=== PATIENT | female | born 1965 | race Caucasian/White ===

== ENCOUNTER 2021-12-15 07:13 | Outpatient (CLI) | payer OTHER, SELFPAY ==
--- NOTE | 2021-12-15 07:15 | CRLHL7_ITS ---
For Patients: As a result of the Century Cures Act, medical imaging exams and procedure reports are released immediately into your electronic medical record. You may view this report before your referring provider. If you have questions, please contact your health care provider. INDICATION: Tremors. Follow-up pituitary lesion. TECHNIQUE: Brain MRI with contrast. Pituitary protocol. The following sequences were obtained: DWI and ADC mapping sequences. Axial FLAIR and T2 weighted sequences. Coronal T2 weighted sequence of the sellar region. Coronal and sagittal thin-section T1 weighted pre-contrast and post-contrast sequences of the sellar region. T1 weighted sequence of the whole brain. 15 cc of Dotarem gadolinium based intravenous contrast agent was used. COMPARISON: Brain MRI from 03/07/2021. FINDINGS: Oval hypoenhancing lesion within the superior pituitary gland substance and inferior infundibulum which is predominantly T2 hypointense and hypoenhancing. It measures 7 millimeters in AP dimension, 7 millimeters in TR dimension, and 5 millimeters in CC dimension. The neurohypophysis demonstrates normal T1 shortening. Infundibulum is midline. The cavernous sinuses and Meckel`s caves are normal in appearance. The suprasellar cistern, hypothalamus and optic chiasm are all normal in appearance. All the major intracranial vascular structures demonstrate normal flow-related signal voids and intraluminal enhancement. Sphenoid sinus demonstrates subsellar pneumatization. No evidence of acute ischemia, although the diffusion sequence is degraded by artifact. Scattered FLAIR hyperintensities within the supratentorial white matter, typical for chronic microvascular ischemic changes. No mass effect or herniation. No hydrocephalus or extra-axial collections. Posterior fossa is normal. All the major intracranial vascular structures demonstrate normal flow-related signal. The orbital contents are normal. No calvarial or skull base marrow signal abnormality. No obstructive sinus disease. No extracranial soft tissue findings. IMPRESSION: 1. Decreased size of the lesion involving the superior pituitary gland at the infundibular insertion. 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 No significant suprasellar mass effect upon today`s examination. 2. No evidence of acute infarction, although the diffusion sequence is degraded by artifact. 3. No mass or pathologic intracranial enhancement elsewhere. 4. Minor chronic microvascular ischemic changes. Dictated by Ko Bae MD @ 12/16/2021 11:48:26 AM (Electronically Signed)
--- NOTE | 2021-12-15 08:15 | CRLHL7_ITS ---
For Patients: As a result of the Cures Act, medical imaging exams and procedure reports are released immediately into your electronic medical record. You may view this report before your referring provider. If you have questions, please contact your health care provider. Indication: Imbalance Technique: Multiplanar, multisequence MRI of the cervical spine obtained without and with contrast. A total of 15 mL of gadolinium-based IV contrast was administered. Comparison: Same-day MRI brain, MRI cervical spine 06/22/2021 Findings: Normal static alignment of the cervical spine. No significant spondylolisthesis. Slight anterior wedging of C5 and C6, likely on a chronic/developmental basis. No evidence of acute fracture. 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 Intervertebral discs are grossly maintained. No significant disc bulges or protrusions. No evidence of significant foraminal or spinal canal stenosis. Included posterior fossa structures are unremarkable. 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 Visualized spinal cord appears normal in course and caliber. No convincing cord signal abnormality. No suspicious enhancement identified. No suspicious findings in the prevertebral or paraspinal soft tissues. Likely small nodules within the inferior left thyroid lobe. Impression: 1. Unremarkable MRI of the cervical spine. No acute osseus abnormality or suspicious enhancement. 2. No cord compression or cord signal abnormality. No significant foraminal or spinal canal stenosis. 3. 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 Dictated by Latha Hatch MD @ 12/16/2021 11:30:21 AM (Electronically Signed)
== END 2021-12-15 07:14 | disposition home or self-care (01) ==
LOC: MRI 07:16
PROVIDERS: Visit Provider Psychiatry & Neurology Neurology
DX: R26.89 Other abnormalities of gait and mobility (principal); I67.82 Cerebral ischemia; R25.1 Tremor, unspecified; E23.7 Disorder of pituitary gland, unspecified
CPT/HCPCS: 70553; 72156; A9575